=== PATIENT | male | born 1990 | race American Indian/Alaskan Native ===

== ENCOUNTER 2019-12-11 20:44 | Emergency (ER) | payer SELFPAY ==
[2019-12-11] MEDS ORDERED: LIDOCAINE (1%) 10 MG/1 ML VIAL 20 ML MDV INFILTRATI ONE (21:14)
[2019-12-11] MEDS ORDERED: SODIUM CHLORIDE 0.9% IRR 500 ML BOTTLE IR ONE (21:14)
[2019-12-11] MEDS ORDERED: DIPHtheria,PERTUSSIS(ACELL),TETANUS VACCINE/PF 0.5 ML VIAL IM ONE (21:14)
--- NOTE | 2019-12-11 21:14 | Event Note ---
ED Screening Note ED Screening Note: lip lac sp fall down steps mechanical ? tdap rx none This initial assessment/diagnostic orders/clinical plan/treatment(s) is/are subject to change based on patients health status, clinical progression and re- assessment by fellow clinical providers in the ED. Further treatment and workup at subsequent clinical providers discretion. Patient/guardian urged not to elope from the ED as their condition may be serious if not clinically assessed and managed. Initial orders include: acc
[2019-12-11 21:27] VITALS: BP 139/103
[2019-12-12] MEDS ORDERED: ACETAMINOPHEN 500 MG TAB PO ONE (02:21)
[2019-12-12] MEDS ORDERED: IBUPROFEN 800 MG TAB PO ONE (02:21)
[2019-12-12] MEDS ORDERED: ACETAMINOPHEN 500 MG TAB ONE (02:24)
[2019-12-12] MEDS ORDERED: IBUPROFEN 800 MG TAB ONE (02:24)
--- NOTE | 2019-12-12 04:27 | Emergency Department Report ---
ED General Adult HPI - General Chief complaint: Wound/Laceration Stated complaint: LIP LACERATION/FALL Time Seen by Provider: 12/11/19 21:13 Source: patient Mode of arrival: Ambulatory Limitations: No Limitations - History of Present Illness Initial comments: 29-year-old -Wel[place] male presents emerge department complaining of laceration to the right lip that occurred prior to arrival from a slip and fall down the steps striking his lip resulting in bleeding. Pain is dull and throbbing but he will ports no loss of dentition. Reports also having a nodule to his lower lip which oozes pus and drainage off and on multiple times over the past 6 months. Is known exacerbated by him biting his lip but reports no fevers chills or sweats no odynophagia or dysphagia. No neck pain Radiation: non-radiation Severity scale (0 -10): 4 Quality: aching, dull Consistency: constant Improves with: none Worsens with: none Associated Symptoms: denies: confusion, chest pain, cough, diaphoresis, headaches, loss of appetite, malaise, nausea/vomiting, rash, shortness of breath, syncope, weakness Treatments Prior to Arrival: none - Related Data Previous Rx's Medication Instructions Recorded Last Taken Type Amoxicillin/Potassium Clav 1 each PO BID #20 tablet 12/12/19 Unknown Rx [Augmentin 875-125 Tablet] Chlorhexidine Mouthwash [Peridex] 15 ml MM BID #473 bottle 12/12/19 Unknown Rx traMADoL [Ultram] 50 mg PO Q6HR PRN #20 tablet 12/12/19 Unknown Rx Allergies Allergy/AdvReac Type Severity Reaction Status Date / Time No Known Allergies Allergy Unverified 12/11/19 21:27 ED Review of Systems ROS: Stated complaint: LIP LACERATION/FALL Other details as noted in HPI Comment: All other systems reviewed and negative ED Past Medical Hx - Social History Smoking Status: Never Smoker Substance Use Type: None - Medications Home Medications: Home Medications Medication Instructions Recorded Confirmed Last Taken Type Amoxicillin/Potassium Clav 1 each PO BID #20 tablet 12/12/19 Unknown Rx [Augmentin 875-125 Tablet] Chlorhexidine Mouthwash [Peridex] 15 ml MM BID #473 bottle 12/12/19 Unknown Rx traMADoL [Ultram] 50 mg PO Q6HR PRN #20 tablet 12/12/19 Unknown Rx ED Physical Exam - General Limitations: No Limitations General appearance: alert, in no apparent distress - Head Head exam: Present: atraumatic, normocephalic - Eye Eye exam: Present: normal appearance - ENT ENT exam: Present: mucous membranes moist, other. Absent: normal external ear exam - Expanded ENT Exam Expanded 1 - Other (The laceration to this region flap fight into the intraoral area) 2 - Other (Granulated cystic mass region no active bruising or bleeding at present.) - Neck Neck exam: Present: normal inspection - Respiratory Respiratory exam: Present: normal lung sounds bilaterally. Absent: respiratory distress - Cardiovascular Cardiovascular Exam: Present: regular rate, normal rhythm. Absent: systolic murmur, diastolic murmur, rubs, gallop - GI/Abdominal GI/Abdominal exam: Present: soft, normal bowel sounds - Rectal Rectal exam: Present: deferred - Extremities Exam Extremities exam: Present: normal inspection - Back Exam Back exam: Present: normal inspection - Neurological Exam Neurological exam: Present: alert, oriented X3 - Psychiatric Psychiatric exam: Present: normal affect, normal mood - Skin Skin exam: Present: warm, dry, intact, normal color. Absent: rash ED Course Vital Signs 12/11/19 21:25 Temperature 98.9 F Pulse Rate 101 H Respiratory 16 Rate Blood Pressure 139/103 O2 Sat by Pulse 98 Oximetry - Procedure Description Procedures done: There was prepped and draped sterile fashion anesthesia achieved with 2% lidocaine with no epinephrine. #5-0 Vicryl was placed in simple operative fashion to close the flap-like laceration. The procedure was tolerated well and estimated blood loss less than 2 cc. Critical care attestation.: If time is entered above; I have spent that time in minutes in the direct care of this critically ill patient, excluding procedure time. ED Disposition Clinical Impression: Laceration of oral cavity, Oral lesion Disposition: TO HOME OR SELFCARE Is pt being admited?: No Does the pt Need Aspirin: No Condition: Stable Instructions: Absorbable Suture Care (ED) Referrals: PRIMARY CARE, [Primary Care Provider] - 3-5 Days [facility] [Provider Group] - 3-5 Days
[2019-12-12] MEDS ORDERED: DIPHtheria,PERTUSSIS(ACELL),TETANUS VACCINE/PF 0.5 ML VIAL IM ONE (05:22)
== END 2019-12-12 04:40 | disposition home or self-care (01) ==
LOC: ED 20:44
DX: S01.512A Laceration without foreign body of oral cavity, initial encounter (principal); Z79.2 Long term (current) use of antibiotics; Z79.899 Other long term (current) drug therapy; W10.9XXA Fall (on) (from) unspecified stairs and steps, initial encounter; Y93.89 Activity, other specified; Y92.89 Other specified places as the place of occurrence of the external cause; Y99.8 Other external cause status
CPT/HCPCS: 90471; 90715